=== PATIENT | male | born 1990 | race Two or more races ===

== ENCOUNTER 2018-08-27 01:28 | Emergency (ER) | payer SELFPAY ==
[~2018-08-27] VITALS: Ht 185.4 cm; Wt 99.8 kg
[2018-08-27 01:53] VITALS: BP 118/84
--- NOTE | 2018-08-27 01:53 | NUR ---
ED Nurse Note: Pt was BIBA from street, c/o possible ETOH. Pt is deeply asleep, Vital signs stable at this time. waitng for orders.
[2018-08-27] MEDS ORDERED: Thiamine HCl 100 MG in D5W 55 ML IVPB STA (02:04)
--- NOTE | 2018-08-27 02:30 | NUR ---
ED Nurse Note: Blood and urine sample collected and sent to Lab.
[2018-08-27 03:15] LABS: APPEARANCE,URINE CLEAR; BILIRUBIN, URINE NEGATIVE (NEGATIVE); COLOR,URINE PALE YELLOW; GLUCOSE, URINE (UA) NEGATIVE (NEGATIVE); KETONES,URINE NEGATIVE (NEGATIVE); LEUKOCYTE ESTERASE ,URINE NEGATIVE (NEGATIVE); NITRITE,URINE NEGATIVE (NEGATIVE); PH,URINE 6 (4.5-8.0); PROTEIN,URINE NEGATIVE (NEGATIVE); UROBILINOGEN,URINE NORMAL MG/DL (0.0-1.0)
[2018-08-27 03:18] LABS: BASOPHILS % (AUTO) 1.1 % (0.0-2.0); EOSINOPHILS % (AUTO) 2.6 % (0.0-3.0); HEMATOCRIT 41.8 % (42.0-52.0); HEMOGLOBIN 14.6 G/DL (14.2-18.0); LYMPHOCYTES % (AUTO) 47.3 % (20.0-45.0); MEAN CORPUSCULAR VOLUME 99 FL (80-99); MONOCYTES % (AUTO) 7.3 % (1.0-10.0); NEUTROPHILS % (AUTO) 41.8 % (45.0-75.0); PLATELET COUNT 240 K/UL (150-450); RED BLOOD COUNT 4.21 M/UL (4.70-6.10); RED CELL DISTRIBUTION WIDTH 11.4 % (11.6-14.8); WHITE BLOOD COUNT 8.5 K/UL (4.8-10.8)
[2018-08-27 03:31] LABS: ANION GAP 8 mmol/L (5-15); BLOOD UREA NITROGEN 9 mg/dL (7-18); CALCIUM 8.6 MG/DL (8.5-10.1); CARBON DIOXIDE 27 MMOL/L (21-32); CHLORIDE 106 MMOL/L (98-107); POTASSIUM 3.2 MMOL/L (3.5-5.1); SODIUM 141 MMOL/L (136-145)
[2018-08-27 03:36] LABS: ALANINE AMINOTRANSFERASE 29 U/L (12-78); ALBUMIN 3.6 G/DL (3.4-5.0); ALKALINE PHOSPHATASE 86 U/L (46-116); ASPARTATE AMINO TRANSFERASE 23 U/L (15-37); BILIRUBIN,TOTAL 0.2 MG/DL (0.2-1.0); CREATINE KINASE 211 U/L (26-308)
--- NOTE | 2018-08-27 04:23 | Diagnostic Imaging Report ---
EXAM: CT Head Without Intravenous Contrast CLINICAL HISTORY: ALOC TECHNIQUE: Axial computed tomography images of the head/brain without intravenous contrast. CTDI is 70.53 mGy and DLP is 1453 mGy-cm. One or more of the following dose reduction techniques were used: automated exposure control, adjustment of the mA and/or kV according to patient size, use of iterative reconstruction technique. Coronal reconstruction is also obtained. COMPARISON: No relevant prior studies available. FINDINGS: Brain: Unremarkable. No hemorrhage. No significant white matter disease. No edema. Ventricles: Unremarkable. No ventriculomegaly. Bones/joints: Unremarkable. No acute fracture. Soft tissues: Unremarkable. Sinuses: Polyp versus retention cyst in bilateral maxillary sinuses, larger on the right Mastoid air cells: Unremarkable as visualized. No mastoid effusion. IMPRESSION: No acute findings.
--- NOTE | 2018-08-27 07:25 | NUR ---
HAND-OFF: Report given to Shanna/RN for continue care.
[2018-08-27 07:29] VITALS: BP 106/52
--- NOTE | 2018-08-27 07:30 | NUR ---
ED Nurse Note: Received patient in bed. Alert/Awake x1, slow to answer question. IV site is intact, patent, infusing IVF as ordered. Patient is on monitoring tech, VSS, see flowsheet.
--- NOTE | 2018-08-27 07:59 | NUR ---
ED Nurse Note: cxr taken
--- NOTE | 2018-08-27 08:06 | Emergency Room Report ---
History of Present Illness General Chief Complaint: Alcohol Intoxication Source: Patient Present Illness HPI Patient brought by EMS after concerned people called because he was unresponsive. Allegedly he's been smoking marijuana and drinking alcohol. They state there is no trauma. He's unable to answer any questions at this time. Blood glucose is 118. He has a Ethan wrap on his left wrist. Allergies: Coded Allergies: UNABLE TO ASSESS (Unverified , 08/27/18) Patient History Limited by: medical condition Past Medical History: see triage record Social History: Reports: alcohol use, drug use Social History Narrative From the streets Reviewed Nursing Documentation: PMH: Agreed; PSxH: Agreed Nursing Documentation-PMH Past Medical History Deferred: Patient Unconscious Past Medical History: Deferred Review of Systems All Other Systems: limited Physical Exam Vital Signs Date Time Temp Pulse Resp B/P (MAP) Pulse Ox O2 Delivery O2 Flow Rate FiO2 08/27/18 01:33 98.4 92 18 146/70 94 Room Air Sp02 EP Interpretation: reviewed, normal General Appearance: lethargic, other - Alcohol on breath, Stupor Head: normocephalic Eyes: bilateral eye normal inspection, bilateral eye PERRL, bilateral eye Scleral Injection ENT: moist mucus membranes, other - Positive gag Neck: supple Respiratory: lungs clear, normal breath sounds Cardiovascular #1: regular rate, rhythm Cardiovascular #2: 2+ radial (R) Gastrointestinal: normal inspection, non tender, no mass, non-distended, decreased bowel sounds Musculoskeletal: back normal, other - No deformity Neurologic: other - Stupor but responds to painful stimuli with localization. Eyes closed. Gait present. Psychiatric: other - Stupor Skin: warm/dry Medical Decision Making Diagnostic Impression: Primary Impression: Acute alcoholic intoxication Qualified Codes: F10.929 - Alcohol use, unspecified with intoxication, unspecified ER Course Patient presents with stupor. Differential includes alcohol ingestion, electrolyte and abnormality, head trauma, aspiration pneumonia amongst others. He is protecting his airway at this time. Evaluation will be of EKG, chest x- ray, CT of the head and labs. Is placed on a passenger relations representative. Will receive IV hydration and a dose of IV thiamine. EKG without injury. Chest x-ray without aspiration. Some increased meeks. Labs significant for increased blood alcohol level. Tox screen positive for THC. By the time CT was able to be taken the patient refused to have this done. The patient did not seem to comprehend the risk of refusing the exam. CT was still performed and there was no evidence of any bleed or fracture. Patient more alert. Rouses easily but still ataxic. Continued observation until more sober or somebody can come and pick him u He denies suicidal or homicidal ideation. He is not sure why he was drinking so much. We will not answer as to what happened to his left wrist. Patient signed out to Dr. Denise. Laboratory Tests Test 08/27/18 02:49 White Blood Count 8.5 K/UL (4.8-10.8) Red Blood Count 4.21 M/UL (4.70-6.10) L Hemoglobin 14.6 G/DL (14.2-18.0) Hematocrit 41.8 % (42.0-52.0) L Mean Corpuscular Volume 99 FL (80-99) Mean Corpuscular Hemoglobin 34.6 PG (27.0-31.0) H Mean Corpuscular Hemoglobin Concent 34.8 G/DL (32.0-36.0) Red Cell Distribution Width 11.4 % (11.6-14.8) L Platelet Count 240 K/UL (150-450) Mean Platelet Volume 7.5 FL (6.5-10.1) Neutrophils (%) (Auto) 41.8 % (45.0-75.0) L Lymphocytes (%) (Auto) 47.3 % (20.0-45.0) H Monocytes (%) (Auto) 7.3 % (1.0-10.0) Eosinophils (%) (Auto) 2.6 % (0.0-3.0) Basophils (%) (Auto) 1.1 % (0.0-2.0) Urine Color Pale yellow Urine Appearance Clear Urine pH 6 (4.5-8.0) Urine Specific [place] 1.010 (1.005-1.035) Urine Protein Negative (NEGATIVE) Urine Glucose (UA) Negative (NEGATIVE) Urine Ketones Negative (NEGATIVE) Urine Blood 4+ (NEGATIVE) H Urine Nitrite Negative (NEGATIVE) Urine Bilirubin Negative (NEGATIVE) Urine Urobilinogen Normal MG/DL (0.0-1.0) Urine Leukocyte Esterase Negative (NEGATIVE) Urine RBC 2-4 /HPF (0 - 0) H Urine WBC 0 /HPF (0 - 0) Urine Squamous Epithelial Cells Occasional /LPF Urine Bacteria None /HPF (NONE) Sodium Level 141 MMOL/L (136-145) Potassium Level 3.2 MMOL/L (3.5-5.1) L Chloride Level 106 MMOL/L (98-107) Carbon Dioxide Level 27 MMOL/L (21-32) Anion Gap 8 mmol/L (5-15) Blood Urea Nitrogen 9 mg/dL (7-18) Creatinine 1.0 MG/DL (0.55-1.30) Estimate Glomerular Filtration Rate > 60 mL/min (>60) Glucose Level 100 MG/DL (74-106) Calcium Level 8.6 MG/DL (8.5-10.1) Total Bilirubin 0.2 MG/DL (0.2-1.0) Aspartate Amino Transferase (AST) 23 U/L (15-37) Alanine Aminotransferase (ALT) 29 U/L (12-78) Alkaline Phosphatase 86 U/L (46-116) Total Creatine Kinase 211 U/L (26-308) Total Protein 7.2 G/DL (6.4-8.2) Albumin 3.6 G/DL (3.4-5.0) Globulin 3.6 g/dL Albumin/Globulin Ratio 1.0 (1.0-2.7) Salicylates Level 0.8 ug/mL (2.8-20) L Urine Opiates Screen Negative (NEGATIVE) Acetaminophen Level < 2 MCG/ML (10-30) L Urine Barbiturates Screen Negative (NEGATIVE) Phencyclidine (PCP) Screen Negative (NEGATIVE) Urine Amphetamines Screen Negative (NEGATIVE) Urine Benzodiazepines Screen Negative (NEGATIVE) Urine Cocaine Screen Negative (NEGATIVE) Urine Marijuana (THC) Screen Positive (NEGATIVE) H Serum Alcohol 409 mg/dL EKG Diagnostic Results Rate: normal Rhythm: NSR ST Segments: no acute changes Rhythm Strip Diag. Results EP Interpretation: yes Rhythm: NSR, no PVC's, no ectopy Chest X-Ray Diagnostic Results Chest X-Ray Diagnostic Results : Chest X-Ray Ordered: Yes # of Views/Limited/Complete: 1 View Interpretation: no consolidation, no effusion, no pneumothorax Impression: No acute disease Electronically Signed by: Electronically signed by Thor Denson MD CT/MRI/US Diagnostic Results CT/MRI/US Diagnostic Results : Imaging Test Ordered: Head Impression No bleed or fracture Last Vital Signs Date Time Temp Pulse Resp B/P (MAP) Pulse Ox O2 Delivery O2 Flow Rate FiO2 08/27/18 09:26 98.4 72 17 112/68 100 Room Air Status: improved Disposition: HOME, SELF-CARE Condition: Improved Scripts Unable to Obtain Active Prescriptions or Reported Meds Referrals: NOT CHOSEN IPA/,REFERRING (PCP) Thor Denson MD Aug 27, 2018 08:06
--- NOTE | 2018-08-27 08:07 | Diagnostic Imaging Report ---
EXAM: XR Chest, 1 View CLINICAL HISTORY: ALOC TECHNIQUE: Frontal view of the chest. COMPARISON: No relevant prior studies available. FINDINGS: Lungs: Mildly increased interstitial markings. The lungs are otherwise clear without focal consolidation. Pleural space: Unremarkable. The costophrenic angles are sharp. No visible pneumothorax. Heart: Unremarkable. No cardiomegaly. Mediastinum: Unremarkable. Bones/joints: Unremarkable. Tubes, lines and devices: Telemetry leads overlie the thorax. IMPRESSION: Mildly increased interstitial markings. This is nonspecific and cannot exclude a mild interstitial pneumonitis. No focal consolidation.
--- NOTE | 2018-08-27 08:59 | NUR ---
ED Nurse Note: patient pulled out his IV. patient ambulated to restroom with all his clothes on steady gait.
[2018-08-27 09:26] VITALS: BP 112/68
--- NOTE | 2018-08-27 09:27 | NUR ---
ER DISCHARGE NOTE: Patient is cleared to be discharged per ERMSunshine Denise, pt is aox4, on room air, with stable vital signs. pt was given dc instructions, pt was able to verbalize understanding, pt id band and iv site removed without complications, no bleeding noted. pt is able to ambulate with steady gait. pt took all belongings. Patient got lyft by himself, RN escorted patient out to ED entrance where lyft was waiting, patient able to remeber his address, soc #, patient is now A/O x4.
--- NOTE | 2018-08-31 01:30 | Cardiology Report ---
APPROVED REPORT EKG Measurement Heart [id number] Normal sinus rhythm Possible Left atrial enlargement RSR' or QR pattern in V1 suggests right ventricular conduction delay Borderline ECG
== END 2018-08-27 09:30 | disposition home or self-care (01) ==
LOC: EDBD 01:28 → EMR 03:49
DX: F10.129 Alcohol abuse with intoxication, unspecified (principal); R41.82 Altered mental status, unspecified
CPT/HCPCS: 36415; 70450; 71045; 80053; 80307; 81003; 82550; 85025; 93005; 96361; 96365; 99284; G0480; 80329